=== PATIENT | female | born 1995 | race Caucasian/White ===

== ENCOUNTER → 2016-07-04 | Day surgery (SDC) | payer BC, OTHER ==
[~2016-07-04] MED LIST: LACTATED RINGER'S 1000 ML INJ 1,000 ML ONE; ORSYTAB PO; PROPOFOL 500 MG/50 ML BTL IV ONE
--- NOTE | 2016-07-04 09:41 | GIPROC ---
[facility] [address], [address] COLONOSCOPY PROCEDURE REPORT EXAM DATE: 07/04/2016 PATIENT NAME: Efren Noble MR #: [id number] BIRTHDATE: 1995 ENDOSCOPIST: Eleanor Mancia MD ORDER #: [id number] PSYCHOTHERAPIST: Catina Helms RN STATUS: outpatient INDICATIONS: The patient is a 21 yr old female here for a colonoscopy due to abdominal pain and change in bowel habits PROCEDURE PERFORMED: Colonoscopy with biopsy MEDICATIONS: None and Per Anesthesia. PREP QUALITY: The [place] Bowel Prep Score was Right colon 2, Mid colon 2, and Left colon 3. Total = 7. PREP TYPE:SuPrep ESTIMATED BLOOD LOSS: None CONSENT: The patient understands the risks and benefits of the procedure and understands that these risks include, but are not limited to: sedation, allergic reaction, infection, perforation and/or bleeding. Alternative means of evaluation and treatment include, among others: physical exam, x-rays, and/or surgical intervention. The patient elects to proceed with this endoscopic procedure. medical equipment was checked for proper function. Hand hygiene and appropriate measures for infection prevention was taken. After the risks, benefits and alternatives of the procedure were thoroughly explained, Informed consent was verified, confirmed and timeout was successfully executed by the treatment team. A digital exam revealed external hemorrhoids The EC-[id number] ([id number]) endoscope was introduced through the anus and advanced to the terminal ileum which was intubated for a short distance. The instrument was then slowly withdrawn as the colon was fully examined. COLON FINDINGS: The colonic mucosa appeared normal throughout the entire examined colon. Multiple random biopsies of the area were performed using cold forceps. Retroflexed views revealed no abnormalities The scope was then completely withdrawn from the patient and the procedure terminated. PROCEDURE WITHDRAWAL TIME:7minutes ADVERSE EVENTS: There were no complications. IMPRESSIONS: 1. The colonic mucosa appeared normal throughout the entire examined colon; multiple random biopsies of the area were performed using cold forceps 2. Retroflexed views revealed no abnormalities 3. Revealed external hemorrhoids RECOMMENDATIONS: 1. Await biopsy results. Biopsy results will not be ready for 7-10 days. If you don't hear from us in two weeks, call our office for results. 2. High fiber diet 3. Erythromicin 250mg 1 po daily x 21 days RECALL: Return 10 years Colonoscopy Eleanor Mancia MD eSigned: Eleanor Mancia MD 07/04/2016 9:41 AM cc: Wander Krueger M.D and [facility] Hernandez [facility]
== END | disposition home or self-care (01) ==
LOC: ESDC 07:28
PROVIDERS: ATTEND Internal Medicine Gastroenterology
DX: R10.9 Unspecified abdominal pain (principal); R19.4 Change in bowel habit
CPT/HCPCS: 00810; 45380; 88305; J7120; 88307